=== PATIENT | female | born 1985 | race Caucasian/White ===

== ENCOUNTER 2018-06-22 10:58 | Outpatient (CLI) | payer BC ==
--- NOTE | 2018-06-22 12:18 | RAD ---
TWO VIEWS OF THE RIGHT HIP: DATE: 06/22/2018. PROVIDED CLINICAL HISTORY: Right hip pain. FINDINGS: There is mild coxa magna deformity of the right femoral head. There is somewhat heterogeneous lucenc y involving the superior medial weight bearing portions of the right femoral head. Osteophyte format ion is seen arising from the femoral head-neck junction. The right hip joint space appears preserved . Alignment appears anatomic. No lytic or blastic lesions are seen. IMPRESSION: Mild coxa magna deformity of the right hip with changes suggesting prior osteonecrosis and subchondra l collapse with associated secondary degenerative change. POS: Aidan
== END 2018-06-22 10:59 | disposition home or self-care (01) ==
LOC: TBSIIMAG 10:58
PROVIDERS: ATTEND Neurological Surgery
DX: M25.551 Pain in right hip (principal); M91.41 Coxa magna, right hip

== ENCOUNTER 2018-07-21 10:39 | Outpatient (CLI) | payer BC ==
--- NOTE | 2018-07-21 13:27 | MRI ---
MRI CERVICAL SPINE NONCONTRAST: 07/21/2018 HISTORY: Neck pain and tingling and numbness in hands and arms. Cervical radiculopathy. FINDINGS: The visualized base of the brain and cervicomedullary junction demonstrate a normal MRI appearance. Normal signal intensity is demonstrated in the bone marrow. The spinal cord is normal in signal inte nsity and contour throughout the cervical spine. C2-C3: There is no disk bulge or disk herniation. The central spinal canal and neural foramina are patent. C3-C4: There is no disk bulge or disk herniation. The central spinal canal and neural foramina are patent. C4-C5: There is mild uncinate process hypertrophy on the left. There is no significant disk bulge o r disk herniation. The central spinal canal and neural foramina are patent. C5-C6: There is a mild broad-based disk osteophyte complex with uncinate process hypertrophy. The f indings result in mild right-sided neural foraminal narrowing. The central spinal canal and left audra ral foramen are patent. There is only very slight mass effect on the ventral aspect of the subarachn oid space. C6-C7: There is no disk bulge or disk herniation. The central spinal canal and neural foramina are patent. C7-T1: There is no disk bulge or disk herniation. The central spinal canal and neural foramina are patent. At the T2-T3 and T3-T4 levels, based on sagittal imaging, there appear to be small, focal, central di sk protrusions, which narrow the ventral subarachnoid space and encroach on the anterior aspect of th e spinal cord; however, the neural foramina are patent at this level, and there is no significant mas s effect identified on the spinal cord. IMPRESSION: Minimal degenerative changes in the cervical spine, predominantly at the C5-C6 level, where there is mild right-sided neural foraminal narrowing. POS: SP
== END 2018-07-21 10:40 | disposition home or self-care (01) ==
LOC: TBSIIMAG 10:39
PROVIDERS: ATTEND Neurological Surgery
DX: M47.22 Other spondylosis with radiculopathy, cervical region (principal); M48.02 Spinal stenosis, cervical region
CPT/HCPCS: 72141

== ENCOUNTER 2018-12-02 05:49 | Day surgery (SDC) | payer BC ==
[2018-11-19 09:06] VITALS: BMI 22.8
[2018-12-02] MEDS ORDERED: Lidocaine 1% w/Epinephrine 1:100K 20 ML VIAL ONE (06:43)
[2018-12-02] MEDS ORDERED: Fentanyl 100 MCG/2 ML VIAL ONE (07:34)
--- NOTE | 2018-12-02 15:44 | OP ---
DATE OF PROCEDURE: 12/02/2018 PREOPERATIVE DIAGNOSES: Right carpal tunnel syndrome, right 3rd trigger finger. POSTOPERATIVE DIAGNOSES: Right carpal tunnel syndrome, right 3rd trigger finger. PROCEDURES PERFORMED: Right carpal tunnel release and right 3rd trigger finger release. ANESTHESIA: General. ESTIMATED BLOOD LOSS: Minimal. SPECIMENS: None. DRAINS: None. COMPLICATIONS: None. PROCEDURE IN DETAIL: After appropriate consent was obtained, the patient was taken to the operating room where general anesthesia was induced. The arm was prepped and draped in the sterile fashion. The arm was exsanguinated. The tourniquet was inflated to 250 mmHg. A longitudinal incision was made. Hemostasis obtained. Dissection was carried down to the transverse carpal ligament. The transverse carpal ligament was incised. Hemostat was placed deep in the transverse carpal ligament. The knife was used to cut down unto the ligament and hemostat. Care was taken to protect the contents of the carpal canal. Attention was then turned proximally. Metzenbaum scissors were used to release the carpal ligament into the forearm fascia. The carpal tunnel was palpated. There were no masses. The tourniquet was released. Hemostasis was obtained. Copious irrigation performed. The skin was closed with 4-0 nylon. A sterile dressing was applied and the patient was placed in a splint. There were no complications. Transverse incision was made at the base of the 3rd digit. This was carried down to the flexor tendon sheath. I used Ragnells to retract the neurovascular bundles medially and laterally. Under direct visualization, the tendon sheath was released. Tendons were delivered into the wound to make sure there was no catching. Tourniquet was released. Irrigation was performed. Hemostasis was obtained. Skin was closed with 3-0 nylon suture. Sterile dressings were applied. Job ID: [id number]
[2018-12-02] MEDS ORDERED: Ondansetron PF 4 MG/2 ML Vial ONE (17:12)
[2018-12-02] MEDS ORDERED: PROPOFOL 200 MG/20 ML VIAL ONE (17:12)
[2018-12-02] MEDS ORDERED: Lidocaine 1% PF 5 ML VIAL ONE (17:12)
[2018-12-02] MEDS ORDERED: Dexamethasone 20 MG/5 ML VIAL ONE (17:12)
== END 2018-12-02 09:23 | disposition home or self-care (01) ==
LOC: SDC 05:49
PROVIDERS: ATTEND Orthopaedic Surgery
PROC: 0LN70ZZ Release Right Hand Tendon, Open Approach (ICD-10-PCS; principal; 2018-12-02)
PROC: 01N50ZZ Release Median Nerve, Open Approach (ICD-10-PCS; principal; 2018-12-02)
DX: G56.01 Carpal tunnel syndrome, right upper limb (principal); M65.331 Trigger finger, right middle finger; D64.9 Anemia, unspecified; F41.9 Anxiety disorder, unspecified; G89.29 Other chronic pain; Z87.891 Personal history of nicotine dependence; Z79.899 Other long term (current) drug therapy
CPT/HCPCS: J0690; J1100; J2001; J2405; J2704; J3010

== ENCOUNTER 2019-03-03 10:50 | Outpatient (CLI) | payer BC ==
--- NOTE | 2019-03-03 12:52 | BD ---
Exam: DEXA Bone Density 03/03/19 PROVIDED CLINICAL HISTORY: Osteoporosis. FINDINGS: Lumbar Spine: BMD (g/cm2) T-SCORE L1 0.814 -1.6 L2 0.877 -1.4 L3 0.858 -2.1 L4 0.883 -1.6 L1-L4 0.860 -1.7 Femoral Neck: 0.608 -2.2 Total Femur: 0.825 -1.0 Impression: Calculated bone mineral density meets WHO criteria for osteopenia and places the patient at increased risk for fracture. POS: TPC
== END 2019-03-03 10:51 | disposition home or self-care (01) ==
LOC: BICMAMMO 10:50
PROVIDERS: ATTEND Obstetrics & Gynecology
DX: Z13.820 Encounter for screening for osteoporosis (principal); M85.89 Other specified disorders of bone density and structure, multiple sites
CPT/HCPCS: 77080

== ENCOUNTER 2019-04-19 09:58 | Outpatient (CLI) | payer BC ==
[2019-04-19 11:44] LABS: BHCG - Serum Negative (NEGATIVE); Pregs Control Background? CLEAR/WHITE (CLR/WHITE); Pregs Control Bar Appear? YES (CONTROL BAR)
== END 2019-04-19 09:59 | disposition home or self-care (01) ==
LOC: LABBT 09:58
PROVIDERS: ATTEND Orthopaedic Surgery
DX: Z01.812 Encounter for preprocedural laboratory examination (principal); G56.02 Carpal tunnel syndrome, left upper limb; M65.332 Trigger finger, left middle finger
CPT/HCPCS: 84703

== ENCOUNTER 2019-04-22 06:08 | Day surgery (SDC) | payer BC ==
[2019-04-19 10:14] VITALS: BMI 23.1
[2019-04-22] MEDS ORDERED: Midazolam HCl 2 mg/2 ml Vial ONE (06:48)
[2019-04-22] MEDS ORDERED: Fentanyl 100 MCG/2 ML VIAL ONE (06:49)
[2019-04-22] MEDS ORDERED: Lidocaine 1% w/Epinephrine 1:100K 20 ML VIAL ONE (06:54)
--- NOTE | 2019-04-22 10:29 | OP ---
DATE OF PROCEDURE: 04/22/2019 PREOPERATIVE DIAGNOSIS: Carpal tunnel syndrome, left. POSTOPERATIVE DIAGNOSIS: Carpal tunnel syndrome, left. PROCEDURE: Left carpal tunnel release. ANESTHESIA: General. BLOOD LOSS: Minimal. SPECIMEN: None. DRAIN: None. COMPLICATION: None. TOURNIQUET TIME: PROCEDURE IN DETAIL: After appropriate consent was obtained, the patient was taken to the operating room where TIVA anesthesia was induced. The arm was prepped and draped in the sterile fashion. The arm was exsanguinated. The tourniquet was inflated to 250 mmHg. A longitudinal incision was made. Hemostasis obtained. Dissection was carried down to the transverse carpal ligament. The transverse carpal ligament was incised. Hemostat was placed deep in the transverse carpal ligament. The knife was used to cut down unto the ligament and hemostat. Care was taken to protect the contents of the carpal canal. Attention was then turned proximally. Metzenbaum scissors were used to release the carpal ligament into the forearm fascia. The carpal tunnel was palpated. There were no masses. The tourniquet was released. Hemostasis was obtained. Copious irrigation performed. The skin was closed with 4-0 nylon. A sterile dressing was applied and the patient was placed in a splint. There were no complications. Job ID: [id number]
[2019-04-22] MEDS ORDERED: Ondansetron PF 4 MG/2 ML Vial ONE (11:38)
[2019-04-22] MEDS ORDERED: PROPOFOL 200 MG/20 ML VIAL ONE (11:38)
== END 2019-04-22 08:40 | disposition home or self-care (01) ==
LOC: SDC 06:08
PROVIDERS: ATTEND Orthopaedic Surgery
PROC: 01N50ZZ Release Median Nerve, Open Approach (ICD-10-PCS; principal; 2019-04-22)
DX: G56.02 Carpal tunnel syndrome, left upper limb (principal); M19.90 Unspecified osteoarthritis, unspecified site; G89.29 Other chronic pain; Z79.1 Long term (current) use of non-steroidal anti-inflammatories (NSAID); Z79.899 Other long term (current) drug therapy; Z87.891 Personal history of nicotine dependence
CPT/HCPCS: J0690; J2001; J2250; J2405; J2704; J3010

== ENCOUNTER 2019-06-11 11:21 | Inpatient (IN) | payer BC ==
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
[2019-06-11] MEDS ORDERED: Acetaminophen 325 MG TAB PO PRN (13:06)
[2019-06-11] MEDS ORDERED: Calcium Carbonate 500 MG ChewTAB PO PRN (13:06)
[2019-06-11] MEDS ORDERED: Ondansetron PF 4 MG/2 ML Vial IVP PRN (13:06)
[2019-06-11] MEDS ORDERED: Ondansetron ODT 4 MG TAB PO PRN (13:06)
[2019-06-11 13:12] LABS: Troponin I 0.019 ng/mL (< 0.028)
[2019-06-11 14:00] LABS: Prothrombin Time 13.1 SEC (12.0-14.7)
[2019-06-11] MEDS ORDERED: Fentanyl 100 MCG/2 ML VIAL ONE (14:13)
[2019-06-11 15:05] VITALS: BMI 25.1
[2019-06-11] MEDS ORDERED: HYDROcodone/Acetaminophen 5/325 mg Tablet PO PRN (15:52)
[2019-06-11] MEDS: Ketorolac Tromethamine 30 MG/ML VIAL IVP SCH (17:03)
--- NOTE | 2019-06-11 18:40 | ULT ---
US Venous Doppler Bilat History: Pulmonary embolism. Comparison: None. Findings: Real-time grayscale, color, and spectral analysis of the bilateral lower extremity venous s ystem was performed. The common femoral, femoral, proximal portions greater saphenous and deep femoral veins as well as the popliteal posterior tibial veins were interrogated. Normal flow, augmentation, and compression. Impression: No deep venous thrombosis.
[2019-06-11] MEDS ORDERED: Acetaminophen 500 MG TAB PO SCH (18:45)
[2019-06-11] MEDS ORDERED: Acetaminophen 325 MG TAB PO SCH ×2 (18:45→21:00)
[2019-06-11] MEDS ORDERED: Enoxaparin Sodium 80 MG/0.8 ML SYRINGE SC SCH (21:00)
[2019-06-11] MEDS: Apixaban 5 MG TAB PO SCH (21:18)
[2019-06-12] MEDS: Ketorolac Tromethamine 30 MG/ML VIAL IVP SCH ×2 (00:05→05:35)
[2019-06-12] MEDS: Acetaminophen 500 MG TAB PO SCH ×4 (00:05→17:48)
[2019-06-12 05:15] LABS: #Basophils 0.1 thou/uL (0.0-0.2); #Eosinphils 0.7 thou/uL (0.0-0.7); #Lymphocytes 2.3 thou/uL (1.20-3.40); #Monocytes 1.5 thou/uL (0.11-0.59); #Neutrophils 8.4 thou/uL (1.40-6.50); %Basophils 0.6 % (0.0-1.0); %Eosinophils 5.5 % (0.0-10.0); %Lymphocytes 17.6 % (21.0-51.0); %Monocytes 11.2 % (0.0-10.0); %Neutrophils 65.1 % (42.0-75.0); Hemoglobin 11.3 g/dL (12.0-16.0); Mean Corpuscular Hemoglobin 29.5 pg (27.0-31.0); Mean Corpuscular Volume 86.7 fL (78.0-98.0); Mean Platelet Volume 7.1 fL (7.4-10.4); Platelet Count 305 thou/uL (130-400); RBC Distribution Width 11.8 % (11.5-14.5); Red Blood Cell (RBC) Count 3.83 mill/uL (4.20-5.40)
[2019-06-12 05:21] LABS: Anion Gap 9 mmol/L (10-20); BUN (Urea Nitrogen) 18 mg/dL (7.0-18.7); Calc. Creatinine Clearance 103 mL/min (70-130); Calcium 8.7 mg/dL (7.8-10.44); Carbon Dioxide 24 mmol/L (22-29); Chloride 111 mmol/L (98-107); Estimated GFR-MDRD 82; Glucose 110 mg/dL (70-105); Potassium 4.1 mmol/L (3.5-5.1); Sodium 140 mmol/L (136-145)
--- NOTE | 2019-06-12 05:42 | PDOC.FM ---
- Subjective Subjective: Patient doing well this morning. Endorsing some pleuritic chest pain, but reports respiratory status is improved from yesterday. Counseled patient on quitting smoking, patient states that none of her family/friends will let her keep smoking after this. Discussed fall risk on eliquis, patient stated understanding. Patient agreeable to current plan of care. - Objective Vital Signs & Weight: Vital Signs (12 hours) Temp Pulse Resp BP Pulse Ox 06/12/19 04:00 97.5 F L 72 20 95/50 L 97 06/11/19 20:00 98.9 F 105 H 18 107/59 L 96 06/11/19 19:37 96 06/11/19 19:06 97 Weight Weight 66.395 kg Result Diagrams: 06/12/19 03:48 06/12/19 03:48 EKG Reviewed by me: Yes (sinus 70s-80s) Phys Exam - Physical Examination Constitutional: NAD HEENT: moist MMs, sclera anicteric Neck: supple, full ROM Respiratory: no wheezing poor inspiratory effort and decreased breath sounds throughout Cardiovascular: RRR, no significant murmur Gastrointestinal: soft, non-tender Musculoskeletal: no edema, pulses present Neurological: normal sensation, moves all 4 limbs Psychiatric: normal affect, A&O x 3 Skin: no rash, normal turgor Dx/Plan (1) Osteopenia Code(s): M85.80 - OT DISRD OF BONE DENSITY AND STRUCTURE, UNSPECIFIED SITE Status: Acute (2) Persistent headaches Code(s): R51 - HEADACHE Status: Acute (3) Pulmonary embolism and infarction Code(s): I26.99 - OTHER PULMONARY EMBOLISM WITHOUT ACUTE COR PULMONALE Status : Acute (4) Tobacco abuse Code(s): Z72.0 - TOBACCO USE Status: Acute - Plan Plan: #Left lower lobe Pulmonary Embolism and Infarct - possibly provoked. Pt risk factors include: current smoker, depoprovera x5 years though this is progesterone-only, car ride of 4 hours last week, recent carpal tunnel surgery 2 months ago, and possibly some other vascular disease related to the avascular necrosis of her right hip - CTA from outside ED showing LLL embolism and infarction - EKG NSR without right heart strain or specific PE pattern - anticoagulated w/ Eliquis: 10mg BID loading dose for 7 days started 06/11, then 5mg BID thereafter. - bilateral LE dopplers: negative for DVT - ECHO pending, will f/u today - Toradol and tylenol scheduled for pleuritic chest pain. Likely due to inflammatory process of PE and infarct. - Patient doing well, maintained 96-97% oxygen saturation overnight - Coagulation studies today #Headaches - has history of bruxism - will monitor mental status changes and watch for any signs of stroke or neurologic deficit. #Osteopenia, Hx of avascular necrosis of right femoral head - continue home meds #Tobacco abuse - counseled on smoking cessation and that this likely contributed to her PE #Hx of HPV and LEEPs - possible pt has occult cervical cancer contributing to hypercoaguable state, but unlikely Code: FULL VTE: received therapeutic lovenox 1 dose. Eliquis started 06/11 GI PPx: none Fluids: none Activity: ad jose e. Encourage incentive spirometry Dispo: telemetry for continued respiratory monitoring. Continue eliquis. Echo pending. Addendum - Attending - Attending Attestation Date/Time: 06/12/19 8117 I personally evaluated the patient and discussed the management with Dr. Thomas. I agree with the History, Examination, Assessment and Plan documented above with any addition or exceptions noted below. Patient here for seemingly unprovoked PE. There is no DVT in her lower extremities. She smokes and is on hormonal contraception. She is pending echo. Currently on Eliquis. Continue anticoagulation for at least 3 months. She reports her father had a "clot" of some sort in his old age but she is unsure. She may need outpatient workup for hypercoagulability. Await echo and if doing well can likely discharge tomorrow.
[2019-06-12 08:10] LABS: Hemoglobin 11.2 g/dL (12.0-16.0); Platelet Count 312 thou/uL (130-400)
[2019-06-12 08:28] LABS: INR-International Normal Ratio 1.2; Prothrombin Time 15.4 SEC (12.0-14.7)
[2019-06-12 08:29] LABS: PTT 43.8 SEC (22.9-36.1)
[2019-06-12 08:30] LABS: D-Dimer Test 1.58 *mcg/mL (0.27-0.43)
[2019-06-12] MEDS ORDERED: Ibuprofen 200 MG TAB PO PRN (08:43)
[2019-06-12] MEDS ORDERED: FLU VACC QS2019-20(6MOS UP)/PF 60 MCG/0.5 ML SYRINGE IM ONE (09:00)
[2019-06-12] MEDS: Apixaban 5 MG TAB PO SCH ×2 (09:36→21:15)
[2019-06-12] MEDS: Calcium Carbonate 600 MG TAB PO SCH (09:36)
[2019-06-12] MEDS: Ibuprofen 200 MG TAB PO SCH ×2 (09:36→12:20)
[2019-06-12] MEDS ORDERED: Ibuprofen 600 MG TAB PO SCH (12:45)
[2019-06-12] MEDS ORDERED: traMADol HCl 50 MG TAB PO SCH (15:15)
[2019-06-12] MEDS: Ibuprofen 800 MG TAB PO SCH (17:49)
[2019-06-13] MEDS: Ibuprofen 800 MG TAB PO SCH ×3 (00:44→12:00)
[2019-06-13] MEDS: Acetaminophen 500 MG TAB PO SCH ×3 (00:44→12:00)
--- NOTE | 2019-06-13 06:00 | PDOC.FM ---
- Subjective Subjective: Pt states her CP is well controlled with ibuprofen, tylenol and ultram for breakthrough pain. Worse with deep breaths. Continuing to use IS, but struggling. Pt denies any hx of IVDA, HIV, or any known blood clotting d/o or fhx of. - Objective MAR Reviewed: Yes Vital Signs & Weight: Vital Signs (12 hours) Temp Pulse Resp BP Pulse Ox 06/13/19 05:45 98 06/13/19 03:07 98.1 F 60 18 93/52 L 98 06/12/19 19:05 99 06/12/19 19:04 98.5 F 66 16 103/56 L 99 Weight Weight 66.395 kg I&O: 06/11/19 06/12/19 06/13/19 06:59 06:59 06:59 Intake Total 500 1750 Balance 500 1750 Result Diagrams: 06/12/19 07:59 06/12/19 07:59 Phys Exam - Physical Examination Constitutional: NAD HEENT: moist MMs, sclera anicteric Neck: no nodes, no JVD, supple, full ROM Respiratory: no wheezing, no rales, no rhonchi, clear to auscultation bilateral Cardiovascular: RRR, no significant murmur, no rub Gastrointestinal: soft, non-tender, no distention, positive bowel sounds Musculoskeletal: no edema, pulses present Neurological: non-focal, normal sensation, moves all 4 limbs Lymphatic: no nodes Psychiatric: normal affect, A&O x 3 Skin: no rash, normal turgor, cap refill <2 seconds Dx/Plan (1) Osteopenia Code(s): M85.80 - [facility] DISRD OF BONE DENSITY AND STRUCTURE, UNSPECIFIED SITE Status: Acute (2) Pulmonary embolism and infarction Code(s): I26.99 - OTHER PULMONARY EMBOLISM WITHOUT ACUTE COR PULMONALE Status : Acute (3) Persistent headaches Code(s): R51 - HEADACHE Status: Acute (4) Tobacco abuse Code(s): Z72.0 - TOBACCO USE Status: Chronic - Plan Plan: #Left lower lobe Pulmonary Embolism and Infarct - possibly provoked. Pt risk factors include: current smoker, depoprovera x5 years though this is progesterone-only, car ride of 4 hours last week, recent carpal tunnel surgery 2 months ago, and possibly some other vascular disease related to the avascular necrosis of her right hip - CTA from outside ED showing LLL embolism and infarction - EKG NSR without right heart strain or specific PE pattern - anticoagulated w/ Eliquis: 10mg BID loading dose for 7 days started 06/11, then 5mg BID thereafter. - bilateral LE dopplers: negative for DVT - ECHO pending, will f/u today - Toradol and tylenol scheduled for pleuritic chest pain. Likely due to inflammatory process of PE and infarct. - Patient doing well, maintained 96-97% oxygen saturation overnight - Coagulation studies pending - Echo: 50-55%, normal. #Headaches - has history of bruxism - will monitor mental status changes and watch for any signs of stroke or neurologic deficit. #Osteopenia, Hx of avascular necrosis of right femoral head - continue home meds #Tobacco abuse - counseled on smoking cessation and that this likely contributed to her PE #Hx of HPV and LEEPs - Followed by [facility] - Next pap due in 3 years. Code: FULL VTE: received therapeutic lovenox 1 dose. Eliquis started 06/11 GI PPx: none Fluids: none Activity: ad jose e. Encourage incentive spirometry Dispo: telemetry for continued respiratory monitoring. Continue eliquis. Addendum - Attending - Attending Attestation Date/Time: 06/13/19 1110 I personally evaluated the patient and discussed the management with Dr. Mi. I agree with the History, Examination, Assessment and Plan documented above with any addition or exceptions noted below. Patient doing well. Vitals stable, PE severity index score is 35 and low risk. She has no DVTs. She is on Eliquis and not having MONTERROSO or hypoxia. Stable for discharge and needs follow up with outpatient physician.
[2019-06-13] MEDS: Calcium Carbonate 600 MG TAB PO SCH (08:46)
[2019-06-13] MEDS: Apixaban 5 MG TAB PO SCH (08:46)
[2019-06-13 12:00] VITALS: BP 122/68
[2019-06-13 12:20] VITALS: TEMP 98.1
--- NOTE | 2019-06-13 14:42 | DIS ---
DATE OF ADMISSION: 06/11/2019 DATE OF DISCHARGE: 06/13/2019 RESIDENT: Maida Mi DO ADMITTING ATTENDING: Dr. Fontaine. DISCHARGE ATTENDING: Dr. Fontaine. CONSULTS: Case Management. PROCEDURES: Echocardiogram resulting in an EF of 50% to 55% with normal size of left atrium, right ventricle, and right atrium. There was mild tricuspid regurgitation. DIAGNOSES: 1. 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 2. Headaches. 3. Osteopenia, history of avascular necrosis of the femoral head. 4. Tobacco abuse history, although the patient is currently not using tobacco. 5. History of HPV and . DISCHARGE MEDICATIONS: 1. Eliquis p.o. 10 mg b.i.d. for 5 more days and switching to Eliquis 5 mg p.o. b.i.d. for at least 3 months. 2. Acetaminophen 1000 mg p.o. q.6 hours. 3. Gabapentin 300 mg p.o. at bedtime. 4. Caltrate one tablet p.o. daily. 5. Ibuprofen 800 mg p.o. q.6 hours p.r.n. 6. Tramadol 50 mg p.o. q.6 hours p.r.n. for pain, 10 pills given upon discharge. DISCONTINUED MEDICATIONS: Depo-Provera shot as no hormonal contraception management is indicated in a patient with pulmonary embolism. HISTORY OF PRESENT ILLNESS/HOSPITAL COURSE: Ms. Price is a 33-year-old female, who came into the emergency department because of being found to have an extensive pulmonary embolism as well as an infarct at an outside facility and was transferred to [facility]. The patient was stable throughout the course of her hospital stay with normal oxygen saturation, respiratory rate, blood pressure, and heart rate. The patient never decompensated and remained stable during her stay. She was started originally on therapeutic Lovenox and then transitioned to p.o. Eliquis for 10 mg p.o. b.i.d. for 7 days and switching to 5 mg p.o. b.i.d. for 3 months at least. The patient does not have a PCP but would like to follow up with [facility] outpatient to establish care and to be managed for her PE. The patient was previously on Depo-Provera for contraception management. This was discontinued as it was recommended for her to not be on any hormonal therapy because of her blood clotting. The patient understands this risk and will carry this history going forward DISPOSITION: The patient is stable upon discharge with stable vitals and need to go home. Also managing her pain well. DISCHARGE INSTRUCTIONS: 1. Location: Home. 2. Diet: Regular diet. 3. Activity: As tolerated. 4. Followup: Follow up with [facility] in 3 day's time to go over new medication as well as establish care with a primary care provider. Job ID: [id number]
== END 2019-06-13 12:33 | disposition home or self-care (01) | DRG 176 ==
LOC: ERS 11:21 → 2NO 12:36
PROVIDERS: ADMIT Student in an Organized Health Care Education/Training Program; ATTEND Student in an Organized Health Care Education/Training Program
DX: I26.99 Other pulmonary embolism without acute cor pulmonale (principal); M85.88 Other specified disorders of bone density and structure, other site; R51 Headache; I07.1 Rheumatic tricuspid insufficiency; F17.200 Nicotine dependence, unspecified, uncomplicated; Z71.6 Tobacco abuse counseling; Z79.01 Long term (current) use of anticoagulants
CPT/HCPCS: 36415; 80048; 81240; 81241; 83090; 83880; 84484; 85025; 85240; 85300; 85303; 85305; 85307; 85379; 85598; 85610; 85730; 86147; 93005; 93306; 93970; 96374; J1885; J3010

== ENCOUNTER 2021-01-09 07:44 | Outpatient (CLI) | payer BC | END 2021-01-09 07:45 | disposition home or self-care (01) | LOC: ULT 07:44 | PROVIDERS: ATTEND Family Medicine | DX: Z86.711 Personal history of pulmonary embolism (principal) | CPT/HCPCS: 76705 ==